=== PATIENT | female | born 1945 ===

== ENCOUNTER 2018-12-12 19:47 | Emergency (ER) | payer MEDICARE, BC ==
[2018-12-12 19:57] VITALS: BP 130/70
[2018-12-12] MEDS ORDERED: Ipratropium 0.5MG/2.5ML NEB* 0.5 MG/2.5 ML NEB.SOLN INH ONE (20:20)
[2018-12-12] MEDS ORDERED: Albuterol 2.5 MG/3 ML NEB.SOL* (0.083%) INH ONE (20:20)
[2018-12-12] MEDS ORDERED: Ipratropium 0.5MG/2.5ML NEB* 0.5 MG/2.5 ML NEB.SOLN ONE (20:28)
--- NOTE | 2018-12-12 20:32 | UC ---
Respiratory Complaint HPI - HPI Summary HPI Summary: 73 yo female with cough and wheeze x 1 day states she has been bothered by allergens x mos nasal congestion cough scratchy throat no f/c no CP or SOB - History of Current Complaint Chief Complaint: UCRespiratory Stated Complaint: COUGH Time Seen by Provider: 12/12/18 19:51 Hx Obtained From: Patient Onset/Duration: Gradual Onset, Lasting Weeks, Worse Since - past 24 hours Timing: Constant Severity Initially: Mild Severity Currently: Moderate Pain Intensity: 5 Pain Scale Used: 0-10 Numeric Character: Cough: Nonproductive Aggravating Factors: Exertion, Deep Breaths Alleviating Factors: Nothing Associated Signs And Symptoms: Positive: Wheezing, Nasal Congestion Related History: Similar Episode/Dx as: - Bronchitis - Allergies/Home Medications Allergies/Adverse Reactions: Allergies Allergy/AdvReac Type Severity Reaction Status Date / Time Sulfa (Sulfonamide Allergy Hives Verified 12/12/18 19:57 Antibiotics) Home Medications: Home Medications Acetaminophen [Tylenol Extra Strength] 1,000 mg PO Q6HR 12/12/18 [History Confirmed 12/12/18] guaiFENesin [Mucinex] 600 mg PO Q12HR 12/12/18 [History Confirmed 12/12/18] PMH/Surg Hx/FS Hx/Imm Hx Previously Healthy: Yes - Surgical History Surgery Procedure, Year, and Place: hernia. hysterectomy. tumor removed left arm. Right TKR 2003 - Family History Known Family History: Positive: Hypertension - Social History Alcohol Use: None Substance Use Type: None Smoking Status (MU): Never Smoked Tobacco Review of Systems All Other Systems Reviewed And Are Negative: Yes Constitutional: Positive: Negative Skin: Positive: Negative Eyes: Positive: Negative ENT: Positive: Nasal Discharge, Sinus Congestion Respiratory: Positive: Cough Cardiovascular: Positive: Negative Gastrointestinal: Positive: Negative Genitourinary: Positive: Negative Motor: Positive: Negative Neurovascular: Positive: Negative Musculoskeletal: Positive: Negative Neurological: Positive: Negative Psychological: Positive: Negative Physical Exam Triage Information Reviewed: Yes Appearance: Well-Appearing, No Pain Distress, Well-Nourished Vital Signs: Initial Vital Signs Temp 98.8 F 12/12/18 19:51 Pulse 84 12/12/18 19:51 Resp 18 12/12/18 19:51 BP 130/70 12/12/18 19:51 Pulse Ox 97 05/18/19 19:51 Vital Signs Reviewed: Yes Eyes: Positive: Conjunctiva Clear ENT: Positive: Hearing grossly normal, Nasal congestion. Negative: Nasal drainage, Trismus, Muffled voice, Hoarse voice Neck: Positive: Supple, Nontender, No Lymphadenopathy Respiratory: Positive: Lungs clear, Normal breath sounds, No respiratory distress Cardiovascular: Positive: RRR, No Murmur Musculoskeletal: Positive: No Edema Neurological: Positive: Alert Psychological Exam: Normal Skin: Negative: Rashes Re-Evaluation - Re-Evaluation First Eval Re-Evaluation Time: 20:55 Change: Improved - decreased cough and wheezing Respiratory Course/Dx - Differential Dx/Diagnosis Provider Diagnosis: Allergic rhinitis, Bronchospasm Discharge - Sign-Out/Discharge Documenting (check all that apply): Patient Departure All imaging exams completed and their final reports reviewed: No Studies - Discharge Plan Condition: Improved Disposition: HOME Prescriptions: Fexofenadine (NF) [Alejandra (NF)] 60 mg PO BID PRN #28 tab PRN Reason: Allergy Symptoms predniSONE [Deltasone 20 MG TAB] 20 mg PO DAILY #5 tab Patient Education Materials: Bronchospasm (ED), How to Use a Metered-Dose Inhaler and a Spacer (ED) Referrals: Miguel A CALDERON,Jaxson Chin [Primary Care Provider] - 5 Days - Billing Disposition and Condition Condition: IMPROVED Disposition: Home
[2018-12-12] MEDS ORDERED: Albuterol HFA INHALER* 8 gm MDI INH ONE (21:02)
== END 2018-12-12 21:22 | disposition home or self-care (01) ==
LOC: UCEAST 19:47
DX: J30.9 Allergic rhinitis, unspecified (principal); J98.01 Acute bronchospasm; Z88.2 Allergy status to sulfonamides
CPT/HCPCS: 99203; A9270-GY; G0463